=== PATIENT | male | born 1945 | race Caucasian/White ===

== ENCOUNTER → 2024-01-24 06:24 | Day surgery (SDC) | payer OTHER, SELFPAY | LOC: GI 06:24 | PROVIDERS: ATTENDING PHYSICIAN Internal Medicine Gastroenterology; FAMILY PHYSICIAN Family Medicine | DX: K21.01 Gastro-esophageal reflux disease with esophagitis, with bleeding (principal); K44.9 Diaphragmatic hernia without obstruction or gangrene; K31.89 Other diseases of stomach and duodenum; R13.10 Dysphagia, unspecified | CPT/HCPCS: 43239; 88305; 88342 ==

== ENCOUNTER 2024-03-05 12:14 | Emergency (ER) | payer OTHER, SELFPAY ==
[2024-03-05 12:17] VITALS: BP 172/77
[2024-03-05 12:32] LABS: % Basophils 0.8 % (0-2); % Eosinophils 1.6 % (0-6); % Immature Granulocytes 0.7 % (0-0.5); % Lymphocytes 18.7 % (20.5-51.1); % Monocytes 7.5 % (1.7-9.3); % Neutrophils 70.7 % (42.2-75.2); Absolute Basophils 0.1 10^3/uL (0-0.2); Absolute Eosinophils 0.2 10^3/uL (0-0.7); Absolute Immature Granulocytes 0.1 10^3/uL (0-0.05); Absolute Lymphocytes 2.1 10^3/uL (1.2-3.4); Absolute Monocytes 0.8 10^3/uL (0.1-0.6); Absolute Neutrophils 7.9 10^3/uL (1.4-6.5); Hematocrit 42.4 % (39.0-52.0); Hemoglobin 14.5 g/dL (13.0-18.0); Mean Corp Hgb Conc. 34.2 g/dL (33.0-37.0); Mean Corpuscular Hgb 32.5 pg (27.0-31.0); Mean Corpuscular Volume 95.1 fL (80.0-94.0); Nucleated Red Blood Cells % 0 % (-); Platelet Count 242 10^3/uL (130-400); Red Blood Cell Count 4.46 10^6/uL (4.70-6.10); Red Cell Dist. Width 13.1 % (11.5-14.5); White Blood Cell Count 11.2 10^3/uL (4.8-10.8)
[2024-03-05 12:57] LABS: ALT (SGPT) 14 U/L (0-50); AST (SGOT) 22 U/L (17-59); Albumin 4.3 g/dl (3.5-5.0); Alkaline Phosphatase 85 U/L (38-126); Blood Urea Nitrogen 16 mg/dl (9-20); Calcium 9.7 mg/dl (8.4-10.2); Carbon Dioxide 22 mmol/L (22-30); Chloride 107 mmol/L (98-107); Glucose 111 mg/dl (70-99); Potassium 4.5 mmol/L (3.5-5.1); Sodium 139 mmol/L (135-145); Total Bilirubin 0.7 mg/dl (0.2-1.3); eGFR > 60.00
--- NOTE | 2024-03-05 16:46 | ED.GENMED ---
History of Present Illness
General
Chief Complaint: Abnormal Lab Value
Source: patient and spouse
Exam Limitations: none
Time Seen by Provider: 03/05/24 16:27
Travel History
Have you had any contact with someone who has COVID-19?: No
Do you have any symptoms of coronavirus? Fever > 100 degrees, chills, cough, shortness of breath, sore throat, loss of taste or smell, muscle aches, or headache?: No
History of Present Illness
History of Present Illness:
Patient is a 78-year-old male with PMH of htn who presents to the ER sent by MRI. Patient reports he had an MRI/MRA today because of frequency of ocular migraines recommended by his neurologist. He was called today stating that he had a stroke
and he needed to come to the ER. 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
He reports around 3 weeks ago to 1 month he was sitting watching TV and his hand started to shake and when he stood up he felt that his balance was off. This resolved on its own but he did have a similar episode the following day. He remembers
trying to crab picker the remote control at that time with his right hand and he could not do so because his hand was shaking. Since then however he has not had any symptoms.
pt smokes 1 cigarette a day.
Past History
Past History
ED Past Medical History: Other (Previous allergies, previous kidney stone, BPH, previous renal insufficiency)
ED Past Surgical History: Urological
Social History
Tobacco: Former smoker
Alcohol: None
Family History
Family History: Diabetes, Hypertension and Other (Dementia)
Review of Systems
Review of Systems
Allergies reviewed?: Yes
Other source history: family
All Other Systems: ROS reviewed and negative except as documented in HPI and ROS
Constitutional: Reports no symptoms; Denies fever, fatigue or chills
Respiratory: Reports no symptoms
Cardiac: Reports no symptoms
ABD/GI: Reports no symptoms
Musculoskeletal: Reports no symptoms
Skin: Reports no symptoms
Neurological: Reports numbness (Patient had an episode of bilateral hand shaking and felt that his balance was off around 3-4 weeks ago x 2 episodes)
Psychiatric: Reports no symptoms
Phy Exam
General Physical Exam
General Presentation: no apparent distress
General age: appears stated age
General Skin: warm and dry
General Habitus: normal
General Mental: alert
General Hydration: appears well hydrated
Neurological Exam
Neurological Exam: alert, oriented x3, no motor deficits and no sensory deficits
NIH Stroke Score
Level of Consciousness: 0 - Alert
LOC questions: 0-Answers both correctly
LOC Commands: 0-Performs both correctly
Best Gaze: 0-Normal
Visual Borrego: 0=Normal, no visual loss
Facial palsy: 0=Normal, symmetrical
Motor - Right Arm: 0=No drift 10 seconds
Motor - Left Arm: 0=No drift 10 seconds
Motor - Right Le-No drift 5 seconds
Motor - Left Le-No drift 5 seconds
Limb Ataxia: 0-Absent
Sensation: 0-Normal
Best Language: 0-No aphasia
Dysarthria: 0-Normal
Extinction and Inattention: 0-No abnormality
Total Score:: 0
Townsend Coma Scale
Eye Opening: Spontaneous
Verbal Response: Oriented
Motor Response: Obeys Commands
GCS Total Score: 15
Cerebellar
Cerebellar Function: normal finger to nose
Musculoskeletal Exam
Musculoskeletal Exam: full ROM
Skin Exam
Skin Exam: normal color and warm/dry
Psychiatric Exam
Psychiatric Exam: normal mood/affect
Course
Orders/Labs/Results
Orders:
Orders
03/05/24 12:24
CMP [Comprehensive Metabolic Panel] Urgent
Cardiovascular Evaluation Urgent
Comment: add on
Complete Blood Count/With Diff Urgent
03/05/24 17:26
Add On- LAB Urgent
Tests Added?: total lipid profile
03/05/24 17:32
Aspirin 325 mg PO NOW STA
03/05/24 20:08
Electrocardiogram (*1) Stat
Reason for Study: Other
Other Reason for Exam: chest pain
EKG- Treatment ONCE
Abnormal Lab Results
03/05/24
12:24
WBC 11.2 H 10^3/uL
(4.8-10.8)
RBC 4.46 L 10^6/uL
(4.70-6.10)
MCV 95.1 H fL
(80.0-94.0)
MCH 32.5 H pg
(27.0-31.0)
Abs Immat Gran (auto) 0.1 H 10^3/uL
(0-0.05)
Absolute Neuts (auto) 7.9 H 10^3/uL
(1.4-6.5)
Absolute Monos (auto) 0.8 H 10^3/uL
(0.1-0.6)
Immature Gran % 0.7 H %
(0-0.5)
Lymphocytes % 18.7 L %
(20.5-51.1)
Glucose 111 H mg/dl
(70-99)
03/05/24 12:24
03/05/24 12:24
Vital Signs
Initial and Last Documented VS:
Initial Vital Signs
Temp Pulse Resp BP Pulse Ox
97.4 F 60 18 172/77 96
03/05/24 12:17 03/05/24 12:17 03/05/24 12:17 03/05/24 12:17 03/05/24 12:17
Last Documented Vital Signs
Temp Pulse Resp BP Pulse Ox
97.4 F 57 13 171/84 95
03/05/24 12:17 03/05/24 20:30 03/05/24 20:30 03/05/24 20:00 03/05/24 20:30
Boat Engines Installer consulted with Physician
Boat Engines Installer consulted with physician?: Yes
Name of Physician Consulted: Bryon
MDM/Problems Addressed
Differential Diagnosis Includes:
not limited to : CVA
MDM/Problems Addressed:
Patient is a 78-year-old male that was sent to the ER after MRI. Patient has a neurologist Dr. Cuadra and MACKENZIE Randall. He was having increase in frequency of ocular migraines and therefore was sent for MRI/MRA. Patient had that done today
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 Both carotid arteries were visualized and normal. Anterior and
posterior circulation read no high-grade occlusions. Patient is awake alert and intact neurologically with an NIH of 0. He does mention around 3-4 weeks ago he was sitting watching TV and his hands are and he had a little balance issue when he
stood up this happened twice the following day as well but since then he has had no symptoms.
Case was reviewed by neurology Dr. Stack who recommends ASA 325 mg daily. I added cholesterol screening to labs as requested . Patient's LDL is 89 as per neurology will start atorvastatin 40 mg once daily
Pt has appt with his neurologist next week d/c with ED physician.
Chronic conditions affecting care:
htn
*Radiology
Radiology exam reviewed: radiology read reviewed (MRI/MRA reviewed )
*Pulse Oximetry
Patient hypoxic: no
*Critical Care Note
Total Time (30-74mins, 75-104mins- exclusive of procedures): Not Applicable
Patient Management
Discussion with other providers: Cook Short Order (neuro DR Stack )
ED Attending Note
-
Portions of this chart may have been created with voice recognition software.� Occasional wrong word or��sound alike� substitutions may have occurred due to the inherent limitations of voice recognition software.
Discharge Plan
Departure
Patient Disposition: Home (Routine Discharge)
Date of Disposition: 03/05/24
Time of Disposition: 20:02
Patient with high blood pressure during this ER visit?: Yes
Covid-19: Not Applicable
Discharge Problem:
CVA (cerebral vascular accident)
Instructions: Stroke, BLOOD PRESSURE
Prescriptions:
New
atorvastatin 40 mg tablet
40 mg PO DAILY Qty: 30 0RF
No Action
carvedilol 12.5 mg Tablet
12.5 mg PO BID
fexofenadine [Divina] 60 mg Tablet
60 mg PO DAILYPRN PRN (Reason: allergies)
amlodipine 5 mg Tablet
5 mg PO BID
acetaminophen [Tylenol Arthritis] 650 mg Tablet Extended Release
650 mg PO DAILYPRN PRN (Reason: mild pain)
tamsulosin 0.4 mg Capsule
0.4 mg PO QPM
lactase [Lactaid] 3,000 unit Tablet
3,000 unit PO DAILYPRN PRN (Reason: lactose intolerance)
finasteride 5 mg Tablet
5 mg PO DAILY
cholecalciferol (vitamin D3) 25 mcg (1,000 unit) Tablet
25 mcg PO DAILY
PreserVision AREDS-2 250-90-40-1 mg Capsule
1 cap PO BID
Referrals:
Viviane Powell DO [Family Provider] -
Activity Restrictions/Additional Instructions:
Follow-up with your neurologist as scheduled next week. In addition a prescription for atorvastatin 40 mg to be taken daily was sent to your pharmacy. Also take aspirin 325 mg daily.
Continue blood pressure medication. Return if any worsening of symptoms
Interventions
Interventions:
*Risk Screen - Suicide Last Done: 03/05/24 12:17
*General Assessment Last Done: 03/05/24 12:17
*Neglect/Abuse Screening Last Done: 03/05/24 12:17
ED- Fall Risk Assessment Last Done: 03/05/24 17:21
*ED COVID-19 Vaccine History Last Done: 03/05/24 12:17
*Nursing Disposition Last Done: 03/05/24 20:47
Discharge Date and Time
Discharge Date/Time: 03/05/24 20:49
Print Language: AMHARIC
[2024-03-05 17:00] VITALS: BP 181/84
[2024-03-05] MEDS: ASPIRIN 325 MG PO (17:46)
[2024-03-05 18:00] VITALS: BP 175/78
[2024-03-05 18:12] LABS: HDL Cholesterol 52 mg/dl; LDL Cholesterol, Calculated 89 mg/dl; Total Cholesterol 165 mg/dl (50-199); Triglyceride 120 mg/dl (10-149); Very Low Density Lipoprotein 24 mg/dl (0-30)
[2024-03-05 19:24] VITALS: BP 177/76
[2024-03-05 20:00] VITALS: BP 171/84
== END 2024-03-05 20:49 | disposition home or self-care (01) ==
LOC: EMR 12:14
PROVIDERS: Emergency Medicine; EMERGENCY PHYSICIAN Emergency Medicine; FAMILY PHYSICIAN Family Medicine
DX: I69.398 Other sequelae of cerebral infarction (principal); R20.0 Anesthesia of skin; G43.909 Migraine, unspecified, not intractable, without status migrainosus; I65.1 Occlusion and stenosis of basilar artery; I10 Essential (primary) hypertension; N40.0 Benign prostatic hyperplasia without lower urinary tract symptoms; F17.210 Nicotine dependence, cigarettes, uncomplicated; Z87.442 Personal history of urinary calculi; Z88.8 Allergy status to other drugs, medicaments and biological substances; Z91.018 Allergy to other foods; Z91.048 Other nonmedicinal substance allergy status
CPT/HCPCS: 99283; 70544; 70551; 80053; 80061; 85025; 93005

== ENCOUNTER → 2024-06-28 15:44 | Outpatient (REF) | payer OTHER, SELFPAY | LOC: RCS 15:44 | PROVIDERS: ATTENDING PHYSICIAN Internal Medicine Cardiovascular Disease; FAMILY PHYSICIAN Family Medicine | DX: I63.89 Other cerebral infarction (principal) | CPT/HCPCS: 93306 ==

== ENCOUNTER 2024-07-27 15:33 | Observation (INO) | payer OTHER, SELFPAY ==
[2024-07-27 12:28] VITALS: BP 176/74
--- NOTE | 2024-07-27 12:28 | ED.CVA ---
ED Provider Triage
<Kashmir Ambrose PA-C - Last Filed: 07/27/24 12:34>
-
Patient seen by provider in Triage?: Seen in Triage
Attestation: A medical screening examination has been initiated by a qualified medical provider. Based on the assessment performed at this time, it has been determined that an emergent medical condition may exist and the patient has been informed
that further medical evaluation and possible additional diagnostic testing may be needed.
HPI: 79-year-old male with past medical history of CVA diagnosed in February of this year presenting to the emergency department for evaluation after approximately 30 minutes prior to arrival his noticed him walking slowly on the stairs, had him sit
down on the couch and noticed a right-sided facial droop and mild slurred speech. At time of arrival to the emergency department all of the symptoms have fully resolved and patient states that he feels back to his usual baseline. No focal
neurologic deficits noted on my exam but given patient's history of stat head CT was ordered.
GENERAL: Alert , in no apparent distress
EYE: No visual abnormalities.
NECK: Trachea midline
ENT: No visible abnormalities.
LUNGS: No acute respiratory distress
NEUROLOGICAL: Alert and oriented
SKIN: Skin intact. No visible changes.
MUSCULOSKELETAL: Moving extremities normally
PSYCH: Normal and appropriate interaction.
This is a medical evaluation conducted in person to initiate diagnostic evaluation and provide initial therapeutics. Please see further documentation by the treating clinician.
History of Present Illness
<Kashmir Ambrose PA-C - Last Filed: 07/27/24 12:34>
General
Chief Complaint: CVA/TIA Symptoms
Time Seen by Provider: 07/27/24 14:11
<Diego Javed DO - Last Filed: 07/28/24 06:09>
General
Source: patient and spouse
Exam Limitations: none
Nursing documentation reviewed up to this point in time: agreed with
Onset of Stroke Symptoms
Onset of symptoms known: Yes
Date of onset of symptoms: 07/27/24
Time of onset of symptoms: 11:30
Time pt last seen normal is known: Yes
Date last time pt seen normal: 07/27/24
History of Present Illness
History of Present Illness:
Agree with triage evaluation from physician tutoring assistant
Past History
<Kashmir Ambrose PA-C - Last Filed: 07/27/24 12:34>
Past History
ED Past Medical History: Other (Previous allergies, previous kidney stone, BPH, previous renal insufficiency)
ED Past Surgical History: Urological
Social History
Tobacco: Former smoker
Alcohol: None
Family History
Family History: Diabetes, Hypertension and Other (Dementia)
Review of Systems
<Diego Javed DO - Last Filed: 07/28/24 06:09>
Review of Systems
Other source history: family
All Other Systems: Not applicable
Phy Exam
<Diego Javed DO - Last Filed: 07/28/24 06:09>
Physical Exam
Physical Exam:
see h/p by APA
Course
<Kashmir Ambrose PA-C - Last Filed: 07/27/24 12:34>
Orders/Labs/Results
Orders:
Orders
07/27/24 12:31
CT Head W/o Iv Contrast Urgent
Comment:
Reason For Exam: possible TIA, slurred speech/facial droop
07/27/24 14:10
Complete Blood Count/With Diff Urgent
Comprehensive Metabolic Panel Urgent
PT/INR [Prothrombin Time] Urgent
07/27/24 14:11
ECG [Electrocardiogram (*1)] Urgent
Reason for Study: TIA/Stroke
07/27/24 14:12
EKG- Treatment ONCE
07/27/24 14:13
Troponin I Urgent
07/27/24 15:11
Admit/Transfer Patient As Directed
Co-Sign Provider:
Level of Care: Observation services
Assign to:: Telemetry
Physician / Group: htay
Diagnosis: TIAr/o CVA
Reason for Telemetry: CVA/TIA
Date to Stop Telemetry: 07/30/24
Time to Stop Telemetry: 11:00
07/27/24 15:13
Code Status As Directed
Resuscitation Status: Full Code
07/27/24 19:39
Acetaminophen [Tylenol/Feverall] 650 mg RECTAL Q4HPRN PRN
Acetaminophen [Tylenol] 650 mg PO Q4HPRN PRN
Aspirin 325 mg PO NOW STA
HydrALAZINE [Apresoline] 5 mg IV Q4HPRN PRN
Lactase Enzyme [Lactaid] 1 capsule PO DAILYPRN PRN
Tamsulosin [Flomax] 0.4 mg PO QPM
07/27/24 19:39
Case Management Consult ONCE
Case Management Consult: Discharge Planning
Comment: stroke/tia
DIETARY CONSULT Routine
Reason for Consult: stroke/TIA
Broadband Installer Urgent
MR Brain Without Contrast Routine
Comment:
Reason For Exam: stroke/TIA
Recent pill cam endoscopy?: No
Activity As Directed
Activity Level: With Assistance
NIH Stroke Scale As Directed
Directions: Per protocol
Comment: every shift and with any change in condition or mental status
Neurological Checks As Directed
Frequency: q4h
Additional Instructions:: q4h x 24h upon admission to the floor, then qshift & with any change in condition
and mental status
Patient Education As Directed
Type: Stroke education packet
Comment: provide to patient and family
Pneumatic Compression Sleeves As Directed
Type: Knee high
Swallow Screening CVA/TIA ONLY As Directed
Comment: NPO until swallowing screening completed
If patient FAILS swallow screening:: NPO, Speech Therapy consult, Aspiration Precautions
If patient PASSES swallow screening, diet:: Cholesterol Lowering
Above diet order entered?: Yes- passed screening
Vital Signs As Directed
Frequency: Per unit guidelines
Ot Eval And Treat Routine
Pt Eval And Treat Routine
Activity Level: As Tolerated
Speech Therapy Eval & Treat Routine
DX Deep Vein Thrombosis Video Routine
07/27/24 20:00
Amlodipine [Norvasc] 5 mg PO BID
Carvedilol [Coreg] 12.5 mg PO BID
07/27/24 20:32
Comprehensive Metabolic Panel Routine
Glycohemoglobin (HgbA1c) Routine
07/28/24 06:00
Basic Metabolic Panel IN AM
Cardiovascular Evaluation IN AM
Complete Blood Count/No Diff IN AM
07/28/24 08:00
Aspirin Chewable [Low Strength Aspirin] 81 mg PO DAILY
Atorvastatin [Lipitor] 40 mg PO DAILY
Finasteride [Proscar] 5 mg PO DAILY
07/30/24 11:00
DC Protocol for Telemetry ONCE
Abnormal Lab Results
07/27/24
14:10
WBC 11.6 H 10^3/uL
(4.8-10.8)
RBC 4.39 L 10^6/uL
(4.70-6.10)
MCH 31.7 H pg
(27.0-31.0)
Abs Immat Gran (auto) 0.1 H 10^3/uL
(0-0.05)
Absolute Neuts (auto) 8.3 H 10^3/uL
(1.4-6.5)
Absolute Monos (auto) 0.9 H 10^3/uL
(0.1-0.6)
Immature Gran % 0.6 H %
(0-0.5)
Lymphocytes % 17.4 L %
(20.5-51.1)
Glucose 114 H mg/dl
(70-99)
07/27/24 14:10
07/27/24 14:10
Vital Signs
Initial and Last Documented VS:
Initial Vital Signs
Temp Pulse Resp BP Pulse Ox
98.5 F 58 16 176/74 98
07/27/24 12:28 07/27/24 12:28 07/27/24 12:28 07/27/24 12:28 07/27/24 12:28
Last Documented Vital Signs
Temp Pulse Resp BP Pulse Ox
98.3 F 58 17 143/61 93
07/28/24 03:28 07/28/24 03:28 07/28/24 03:28 07/28/24 03:28 07/28/24 03:28
<Diego Javed, DO - Last Filed: 07/28/24 06:09>
Orders/Labs/Results
Orders:
Orders
07/27/24 12:31
CT Head W/o Iv Contrast Urgent
Comment:
Reason For Exam: possible TIA, slurred speech/facial droop
07/27/24 14:10
Complete Blood Count/With Diff Urgent
Comprehensive Metabolic Panel Urgent
PT/INR [Prothrombin Time] Urgent
07/27/24 14:11
ECG [Electrocardiogram (*1)] Urgent
Reason for Study: TIA/Stroke
07/27/24 14:12
EKG- Treatment ONCE
07/27/24 14:13
Troponin I Urgent
07/27/24 15:11
Admit/Transfer Patient As Directed
Co-Sign Provider:
Level of Care: Observation services
Assign to:: Telemetry
Physician / Group: htay
Diagnosis: TIAr/o CVA
Reason for Telemetry: CVA/TIA
Date to Stop Telemetry: 07/30/24
Time to Stop Telemetry: 11:00
07/27/24 15:13
Code Status As Directed
Resuscitation Status: Full Code
07/27/24 19:39
Acetaminophen [Tylenol/Feverall] 650 mg RECTAL Q4HPRN PRN
Acetaminophen [Tylenol] 650 mg PO Q4HPRN PRN
Aspirin 325 mg PO NOW STA
HydrALAZINE [Apresoline] 5 mg IV Q4HPRN PRN
Lactase Enzyme [Lactaid] 1 capsule PO DAILYPRN PRN
Tamsulosin [Flomax] 0.4 mg PO QPM
07/27/24 19:39
Case Management Consult ONCE
Case Management Consult: Discharge Planning
Comment: stroke/tia
DIETARY CONSULT Routine
Reason for Consult: stroke/TIA
Broadband Installer Urgent
MR Brain Without Contrast Routine
Comment:
Reason For Exam: stroke/TIA
Recent pill cam endoscopy?: No
Activity As Directed
Activity Level: With Assistance
NIH Stroke Scale As Directed
Directions: Per protocol
Comment: every shift and with any change in condition or mental status
Neurological Checks As Directed
Frequency: q4h
Additional Instructions:: q4h x 24h upon admission to the floor, then qshift & with any change in condition
and mental status
Patient Education As Directed
Type: Stroke education packet
Comment: provide to patient and family
Pneumatic Compression Sleeves As Directed
Type: Knee high
Swallow Screening CVA/TIA ONLY As Directed
Comment: NPO until swallowing screening completed
If patient FAILS swallow screening:: NPO, Speech Therapy consult, Aspiration Precautions
If patient PASSES swallow screening, diet:: Cholesterol Lowering
Above diet order entered?: Yes- passed screening
Vital Signs As Directed
Frequency: Per unit guidelines
Ot Eval And Treat Routine
Pt Eval And Treat Routine
Activity Level: As Tolerated
Speech Therapy Eval & Treat Routine
DX Deep Vein Thrombosis Video Routine
07/27/24 20:00
Amlodipine [Norvasc] 5 mg PO BID
Carvedilol [Coreg] 12.5 mg PO BID
07/27/24 20:32
Comprehensive Metabolic Panel Routine
Glycohemoglobin (HgbA1c) Routine
07/28/24 06:00
Basic Metabolic Panel IN AM
Cardiovascular Evaluation IN AM
Complete Blood Count/No Diff IN AM
07/28/24 08:00
Aspirin Chewable [Low Strength Aspirin] 81 mg PO DAILY
Atorvastatin [Lipitor] 40 mg PO DAILY
Finasteride [Proscar] 5 mg PO DAILY
07/30/24 11:00
DC Protocol for Telemetry ONCE
Abnormal Lab Results
07/27/24
14:10
WBC 11.6 H 10^3/uL
(4.8-10.8)
RBC 4.39 L 10^6/uL
(4.70-6.10)
MCH 31.7 H pg
(27.0-31.0)
Abs Immat Gran (auto) 0.1 H 10^3/uL
(0-0.05)
Absolute Neuts (auto) 8.3 H 10^3/uL
(1.4-6.5)
Absolute Monos (auto) 0.9 H 10^3/uL
(0.1-0.6)
Immature Gran % 0.6 H %
(0-0.5)
Lymphocytes % 17.4 L %
(20.5-51.1)
Glucose 114 H mg/dl
(70-99)
07/27/24 14:10
07/27/24 14:10
Vital Signs
Initial and Last Documented VS:
Initial Vital Signs
Temp Pulse Resp BP Pulse Ox
98.5 F 58 16 176/74 98
07/27/24 12:28 07/27/24 12:28 07/27/24 12:28 07/27/24 12:28 07/27/24 12:28
Last Documented Vital Signs
Temp Pulse Resp BP Pulse Ox
98.3 F 58 17 143/61 93
07/28/24 03:28 07/28/24 03:28 07/28/24 03:28 07/28/24 03:28 07/28/24 03:28
<Diego Javed DO - Last Filed: 07/28/24 06:09>
MDM/Problems Addressed
Differential Diagnosis Includes:
tia cva sz
<Diego Javed DO - Last Filed: 07/28/24 06:09>
*Radiology
Radiology exam reviewed: radiology read reviewed
*Pulse Oximetry
Patient hypoxic: no
*EKG
Interpreted by ED Provider?: Yes
Interpretation: normal
Comparison EKG: no comparison EKG present
Heart Rate: 78
Rate: normal
Rhythm: sinus
[place]: normal axis
Ischemia: no ischemia
*Hand Riveter Interpretation
Rate: normal
Interpretation: normal
Heart Rate: 78
Rhythm: sinus
*Critical Care Note
Total Time (30-74mins, 75-104mins- exclusive of procedures): Not Applicable
Data Reviewed
Source: patient and spouse
ED Attending Note
<Kashmir Ambrose PA-C - Last Filed: 07/27/24 12:34>
-
Portions of this chart may have been created with voice recognition software.� Occasional wrong word or��sound alike� substitutions may have occurred due to the inherent limitations of voice recognition software.
<Diego Javed DO - Last Filed: 07/28/24 06:09>
ED Attending Note
Patient seen and examined by attending physician: Yes
I performed the substantive portion of visit, reviewed & personally made and approve the management plan that is documented in note by myself or WERO.: Yes
ED Attending Note:
Seen with PA examined independently agree with assessment and plan 1520-minute episode of slurred speech and right facial weakness had a stroke on a prior MRI had a Holter monitor with no arrhythmia sees an outpatient neurologist being worked up for
neuropathy
Discharge Plan
Departure
Patient Disposition: Admit
Date of Disposition: 07/27/24
Time of Disposition: 15:08
Admit to: Telemetry
Presentation/result/management discussed w/ accepting MD/DO: Hospitalist
Patient with high blood pressure during this ER visit?: No
Condition: Fair
Covid-19: Not Applicable
Discharge Problem:
Brain TIA
Interventions
Interventions:
*Risk Screen - Suicide Last Done: 07/27/24 12:28
*General Assessment Last Done: 07/27/24 12:28
*Neglect/Abuse Screening Last Done: 07/27/24 12:28
ED- Fall Risk Assessment Last Done: 07/27/24 14:08
*ED COVID-19 Vaccine History Last Done: 07/27/24 12:28
*Nursing Disposition Last Done: 07/27/24 19:15
ED- Pulmonary Assessment Last Done: 07/27/24 14:08
ED- Neurological Assessment Last Done: 07/27/24 14:08
ED- Cardiac Assessment Last Done: 07/27/24 14:08
Discharge Date and Time
Discharge Date/Time: 07/27/24 19:22
[2024-07-27 14:18] VITALS: BP 184/78
[2024-07-27 14:24] LABS: % Basophils 0.7 % (0-2); % Eosinophils 1.4 % (0-6); % Immature Granulocytes 0.6 % (0-0.5); % Lymphocytes 17.4 % (20.5-51.1); % Neutrophils 71.9 % (42.2-75.2); Absolute Basophils 0.1 10^3/uL (0-0.2); Absolute Eosinophils 0.2 10^3/uL (0-0.7); Absolute Immature Granulocytes 0.1 10^3/uL (0-0.05); Absolute Monocytes 0.9 10^3/uL (0.1-0.6); Absolute Neutrophils 8.3 10^3/uL (1.4-6.5); Hematocrit 40.2 % (39.0-52.0); Hemoglobin 13.9 g/dL (13.0-18.0); Mean Corp Hgb Conc. 34.6 g/dL (33.0-37.0); Mean Corpuscular Hgb 31.7 pg (27.0-31.0); Mean Corpuscular Volume 91.6 fL (80.0-94.0); Mean Platelet Volume 10.3 fL (7.4-10.4); Nucleated Red Blood Cells % 0 % (-); Platelet Count 248 10^3/uL (130-400); Red Blood Cell Count 4.39 10^6/uL (4.70-6.10); Red Cell Dist. Width 13.1 % (11.5-14.5); White Blood Cell Count 11.6 10^3/uL (4.8-10.8)
[2024-07-27 14:34] LABS: INR 1.07; PT 13.8 Sec (11.4-14.6)
[2024-07-27 14:43] LABS: ALT (SGPT) 19 U/L (0-50); AST (SGOT) 23 U/L (17-59); Albumin 4.5 g/dl (3.5-5.0); Alkaline Phosphatase 82 U/L (38-126); Blood Urea Nitrogen 16 mg/dl (9-20); Calcium 9.6 mg/dl (8.4-10.2); Carbon Dioxide 25 mmol/L (22-30); Chloride 104 mmol/L (98-107); Glucose 114 mg/dl (70-99); Potassium 4.6 mmol/L (3.5-5.1); Sodium 139 mmol/L (135-145); Total Bilirubin 0.8 mg/dl (0.2-1.3); eGFR > 60.00
[2024-07-27 14:55] LABS: Troponin I < 0.012 ng/ml
--- NOTE | 2024-07-27 15:06 | HPS.HSE ---
Family Physician
-
Family Physician: Viviane Powell
Chief Complaint
-
abn speech and Rt facial droop
History of Present Illness
HPI
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
- noticed a right-sided facial droop and mild slurred speech.
At time of arrival to the emergency department all of the symptoms have fully resolved and patient states that he feels back to his usual baseline. No focal neurologic deficits noted on my exam
Medical History
Past Medical History
Past Medical History: Reports HTN, Hypercholesterolemia and Other (BPH )
Past Surgical History: Reports Urological ( Transurethral ablation of prostate on 03/27/19.)
Social History
Tobacco: Non-smoker
Alcohol: None
Drug: None
Family History
Family History: Not pertinent
Allergies / Home Medications
Allergies reflects when Allergies were last updated in [employer].
Home Medications with original date entered in [employer]
Allergy/Medication List:
Allergies
Allergy/AdvReac Type Severity Reaction Status Date / Time
michela Allergy Unknown Rash,Rash Verified 07/27/24 12:28
- back of
lower legs
olmesartan Allergy Unknown Unknown,contraindicated Verified 07/27/24 12:28
with
kidney
disease
hay fever Allergy Unknown - Uncoded 07/27/24 12:28
Home Medications
acetaminophen 650 mg tablet,extended release 650 mg PO DAILYPRN PRN mild pain 03/05/24
amlodipine 5 mg tablet 5 mg PO BID 03/05/24
atorvastatin 40 mg tablet 40 mg PO DAILY #30 tabs 03/05/24
carvedilol 12.5 mg tablet 12.5 mg PO BID 03/05/24
cholecalciferol (vitamin D3) 25 mcg (1,000 unit) tablet 25 mcg PO DAILY 03/05/24
fexofenadine 60 mg tablet 60 mg PO DAILYPRN PRN allergies 03/05/24
finasteride 5 mg tablet 5 mg PO DAILY 03/05/24
lactase 3,000 unit tablet (Lactaid) 3,000 unit PO DAILYPRN PRN lactose intolerance 03/05/24
tamsulosin 0.4 mg capsule 0.4 mg PO QPM 03/05/24
vit C 250 mg-vit E 90 mg-zinc 40 mg-copper 1 [id number] capsule (PreserVision AREDS-2) 1 cap PO BID 03/05/24
Review of Systems
-
Constitutional: Reports No Symptoms
EENT: Reports No Symptoms
Respiratory: Reports No Symptoms
Cardiac: Reports No Symptoms
Abdomen/GI: Reports No Symptoms
: Reports No Symptoms
Musculoskeletal: Reports No Symptoms
Skin: Reports No Symptoms
Neurological: Reports See HPI
Endocrine: Reports No Symptoms
Hematologic/Lymphatic: Reports No Symptoms
Psych: Reports No Symptoms
Physical Exam
Vital Signs
Vital Signs
Temp Pulse Resp BP Pulse Ox
98.5 F 58 16 184/78 95
07/27/24 12:28 07/27/24 12:28 07/27/24 12:28 07/27/24 14:18 07/27/24 14:30
Physical Exam
General: Well Developed, Well Nourished and No Apparent Distress
HEENT: NormoCephalic, Moist mucous membranes and Atraumatic
Respiratory: Clear
Cardiac: S1/S2 and Regular Rhythm; No Murmur or Rub
GI: Soft, Non Tender, Non Distended and Normal Bowel Sounds; No Organomegaly
Rectal: Deferred by Provider
Musculoskeletal: No Clubbing, No Cyanosis and No Edema
Skin: No Rash
Neuro: Nonfocal/grossly intact
Laboratory Results
-
07/27/24 14:10
07/27/24 14:10
Laboratory Results
PT 13.8 Sec (11.4-14.6) 07/27/24 14:10
INR 1.07 07/27/24 14:10
Total Bilirubin 0.8 mg/dl (0.2-1.3) 07/27/24 14:10
AST 23 U/L (17-59) 07/27/24 14:10
ALT 19 U/L (0-50) 07/27/24 14:10
Alkaline Phosphatase 82 U/L (38-126) 07/27/24 14:10
Troponin I < 0.012 ng/ml 07/27/24 14:13
Data Reviewed
-
CT Scan: Report Reviewed by me
Lab Data: Labs Reviewed by me
Old Records: Reviewed
Impression/Plan
-
Reviewed VS: BP 175/75 - 185/78 HR 58 on Carvedilol
Data
WCC 11.6
07/26/24 HCT
No acute intracranial abnormality.
Small chronic infarct of the right occipital lobe.
03/05/24 MA [place] [facility] [place] [facility]; MR Brain Without Contrast
- Nonhemorrhagic acute/subacute right occipital lobe infarct.
- Focal approximate 50% stenosis of the basilar artery at the pontine level.
The remainder of the basilar artery is intact.
No other focal hemodynamically significant stenosis, aneurysm or occlusion.
- 1.7 cm right frontal calcified meningioma. Consider outpatient follow-up MRI brain exam with contrast.
EKG report
SINUS BRADYCARDIA
OTHERWISE NORMAL ECG
WHEN COMPARED WITH ECG OF 05-MAR-2024 20:17,
NO SIGNIFICANT CHANGE WAS FOUND
06/28/24 TTE
LVEF 61%
Normal diastolic function.
Normal right ventricular size and function.
Trace tricuspid regurgitation. Estimated pulmonary artery pressure of 32 mmHg
Last hospitalist admission:
DATE OF ADMISSION: 05/17/2018 - DATE OF DISCHARGE: 05/20/2018
PRIMARY DIAGNOSIS: Acute kidney injury secondary to obstructive uropathy.
ASSESSMENT & PLAN
Pending Rx reconciliation
Spontaneous resolution of transient acute abnormal acute gait dysfunction , right-sided facial droop and mild slurred speech.
NIH Zero upon arrival
HCT POS for asymptomatic small chronic infarct of the right occipital lobe.
Currently on daily baby ASA
Risk : HTN , HLD
- NEG HCT for acute but
- Further evaluation for TIA, r/o CVA small chronic infarct of the right occipital lobe.
- ASA 325 mg now then cont [employer]ES ATTORNEY ASA daily
- cont [employer]ORNEY Atorvastatin 40mg HS
- Recent TTE as above
- A1 C and Lipids
- Brain MRI in AM
- Neuro consult
Benign HTN - suboptimal control
- cont Amlodipine and Carvedilol
- allow permissive SBP 185, DBP 110 for IV Hydralazine
HX Transurethral ablation of prostate on 03/27/19 for BPH
- await Rx reconciliation
DVT Px: SCD
Code: Full
Obs TLM
[2024-07-27 16:00] VITALS: BP 162/82
--- NOTE | 2024-07-27 16:32 | CON.NEURO ---
Consultation
Order
Date of Consultation: 07/27/24
Requesting Provider: Jose Manuel Merritt MD
Reason for Consult: Stroke
CC: 'episodes'
HPI: This is a 79-year-old RH man who presented to [facility] on July 27, 2024 with a spell.
According to the patient he developed recurrent spells of unusual sensation lasting for several minutes that he developed 3-4 months ago. He feels that his bowels are becoming more frequent and may occur up to twice a week.
The patient also reports intermittent double vision, which he states is a new symptom. No reports of lightheadedness, vertigo, abnormal movements, change in vision or palpitations.
ER VS: 176/74-184/78, 58, afebrile
EKG: sinus maria r, QTc Int : 405 ms
PDMP: none
Labs: WBCs�11.6,Glucose�114,
PMH: R HEAD TURBINE OPERATOR stroke, basilar artery stenosis, DLP, BPH
PSH:TURP
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
FH: No family history of neurodegenerative diseases,
All:olmesartan
ROS:Constitutional: Negative. Negative for chills, fever and unexpected weight change.
HENT: Negative for ear pain, hearing loss, tinnitus and trouble swallowing.
Eyes: Negative. Negative for photophobia, pain and visual disturbance.
Respiratory: Negative for cough, choking and shortness of breath.
Cardiovascular: Negative for chest pain, palpitations and leg swelling.
Gastrointestinal: Negative for abdominal pain and vomiting.
Endocrine: Negative. Negative for cold intolerance.
Genitourinary: Negative for dysuria, flank pain and urgency.
Musculoskeletal: Negative for back pain, gait problem, neck pain and neck stiffness.
Skin: Negative for rash.
Allergic/Immunologic: Negative. Negative for immunocompromised state.
Neurological: Negative for dizziness, tremors, seizures, speech difficulty, numbness and headaches.
Psychiatric/Behavioral: Positive for intermittent confusion.
General: Well developed. In no acute distress.
Cardio: Regular rate and rhythm without murmur. Extremities are without cyanosis or edema.
Neuro:
Mental Status: Alert, oriented to person, place, and date. Increased processing time. Follows simple requests. Nonfluent. No hemineglect.
Cranial Nerves: . Pupils are equally round and reactive to light. EOMs full. Visual hinkle full to confrontation. No ptosis. No nystagmus. V1-V3 intact to light touch and pinprick bilaterally, symmetric. Face symmetric. Normal hearing AU.
The palate elevated well. SCMs and traps 5/5. Tongue midline. No dysarthria.
Motor: Normal bulk and tone. No pronator or arm drift. Strength 5/5 throughout. No clonus.
Reflexes: Negative grasp bilaterally.
Sensory: Light touch.
Coordination: No dysmetria or tremor.
Gait: deferred mildly impaired
Assessment and Plan:
I. Recurrent spells. Focal seizures vs symptomatic bradycardia
II. Chronic R HEAD TURBINE OPERATOR infarct
III. Basilar artery stenosis
IV. 1.7 cm right frontal calcified meningioma
V. Encephalopathy, likely vascular
-Tele
-Fall precautions
-Please obtain brain MRI without gadolinium
-Will obtain collateral history from patient's significant other
-Continue aspirin 81 mg once a day
-Routine EEG(can be done as OP)
I personally reviewed all radiology and labs along with past medical records pertinent to current medical problems. Total time spent in patient care is 60 minutes.
Thank you for allowing us to participate in the care of this patient. We will continue to follow. Please do not hesitate to contact us with any questions or concerns.
Subjective/Objective
Subjective Data
Date of Service: July 27, 2024
Objective Data
Vital Signs
Temp Pulse Resp BP Pulse Ox
36.9 C 58 16 162/82 95
07/27/24 12:28 07/27/24 12:28 07/27/24 12:28 07/27/24 16:00 07/27/24 16:00
Lab Results
07/27/24 14:10
07/27/24 14:10
PT 13.8 Sec (11.4-14.6) 07/27/24 14:10
INR 1.07 07/27/24 14:10
Sodium 139 mmol/L (135-145) 07/27/24 14:10
Potassium 4.6 mmol/L (3.5-5.1) 07/27/24 14:10
BUN 16 mg/dl (9-20) 07/27/24 14:10
Glucose 114 mg/dl (70-99) H 07/27/24 14:10
Calcium 9.6 mg/dl (8.4-10.2) 07/27/24 14:10
Patient Allergies
michela Allergy (Unknown, Verified 07/27/24 12:28)
Rash,Rash - back of lower legs
olmesartan Allergy (Unknown, Verified 07/27/24 12:28)
Unknown,contraindicated with kidney disease
hay fever Allergy (Unknown, Uncoded 07/27/24 12:28)
-
Medications
-
Home Medications
�Medication �Instructions �Recorded
amlodipine 5 mg tablet 5 mg PO BID 03/05/24
carvedilol 12.5 mg tablet 12.5 mg PO BID 03/05/24
cholecalciferol (vitamin D3) 25 25 mcg PO DAILY 03/05/24
mcg (1,000 unit) tablet
fexofenadine 60 mg tablet 60 mg PO DAILYPRN PRN allergies 03/05/24
finasteride 5 mg tablet 5 mg PO DAILY 03/05/24
lactase 3,000 unit tablet (Lactaid) 3,000 unit PO DAILYPRN PRN lactose 03/05/24
intolerance
tamsulosin 0.4 mg capsule 0.4 mg PO QPM 03/05/24
vit C 250 mg-vit E 90 mg-zinc 40 1 cap PO BID 03/05/24
mg-copper 1 [id number]
capsule (PreserVision AREDS-2)
acetaminophen 500 mg tablet 500 mg PO Q6HPRN PRN mild pain 07/27/24
(Tylenol Extra Strength)
aspirin 325 mg tablet 325 mg PO NOON 07/27/24
atorvastatin 10 mg tablet 10 mg PO NOON 07/27/24
tetrahydrozoline 0.05 % eye drops 1 drp BOTH EYES Q6HPRN PRN dry eyes 07/27/24
(Visine)
Vital Signs and Labs
-
Vital Signs and Labs:
Vital Signs
Temp Pulse Resp BP Pulse Ox
36.9 C 73 18 160/80 98
07/27/24 12:28 07/27/24 17:34 07/27/24 17:34 07/27/24 17:34 07/27/24 17:34
Lab Results
07/27/24 14:10
07/27/24 14:10
PT 13.8 Sec (11.4-14.6) 07/27/24 14:10
INR 1.07 07/27/24 14:10
Sodium 139 mmol/L (135-145) 07/27/24 14:10
Potassium 4.6 mmol/L (3.5-5.1) 07/27/24 14:10
BUN 16 mg/dl (9-20) 07/27/24 14:10
Glucose 114 mg/dl (70-99) H 07/27/24 14:10
Calcium 9.6 mg/dl (8.4-10.2) 07/27/24 14:10
Home Medications
-
Home Medications
amlodipine 5 mg tablet 5 mg PO BID 03/05/24
carvedilol 12.5 mg tablet 12.5 mg PO BID 03/05/24
cholecalciferol (vitamin D3) 25 mcg (1,000 unit) tablet 25 mcg PO DAILY 03/05/24
fexofenadine 60 mg tablet 60 mg PO DAILYPRN PRN allergies 03/05/24
finasteride 5 mg tablet 5 mg PO DAILY 03/05/24
lactase 3,000 unit tablet (Lactaid) 3,000 unit PO DAILYPRN PRN lactose intolerance 03/05/24
tamsulosin 0.4 mg capsule 0.4 mg PO QPM 03/05/24
vit C 250 mg-vit E 90 mg-zinc 40 mg-copper 1 [id number] capsule (PreserVision AREDS-2) 1 cap PO BID 03/05/24
acetaminophen 500 mg tablet (Tylenol Extra Strength) 500 mg PO Q6HPRN PRN mild pain 07/27/24
aspirin 325 mg tablet 325 mg PO NOON 07/27/24
atorvastatin 10 mg tablet 10 mg PO NOON 07/27/24
tetrahydrozoline 0.05 % eye drops (Visine) 1 drp BOTH EYES Q6HPRN PRN dry eyes 07/27/24
[2024-07-27 17:34] VITALS: BP 160/80
--- NOTE | 2024-07-27 19:40 | PTCARENOTE ---
Patient arrived to 317-2 from ED via stretcher, ambulated from stretcher to bed with standby assist and tolerated well. Patient alert and oriented, no complaints at this time. Significant other at bedside. NIH performed -- score of 0. Patient
currently with no symptoms, all resolved prior to arrival to ED. Initiated on quality assurance monitor final #1 - SR with HR 70s. Patient provided with boxed lunch, passed swallow screen, tolerated well. Call wagoner within reach, verbalizes understanding on use.
Will continue to monitor.
[2024-07-27] MEDS: FLOMAX 0.4 MG PO (20:43)
[2024-07-27] MEDS: NORVASC 5 MG PO (20:43)
[2024-07-27] MEDS: COREG 12.5 MG PO (20:43)
[2024-07-27] MEDS: ASPIRIN 325 MG PO (20:43)
[2024-07-27 20:55] VITALS: BMI 31.1
[2024-07-27 20:58] LABS: ALT (SGPT) 18 U/L (0-50); AST (SGOT) 22 U/L (17-59); Albumin 4.2 g/dl (3.5-5.0); Alkaline Phosphatase 76 U/L (38-126); Blood Urea Nitrogen 15 mg/dl (9-20); Calcium 9.5 mg/dl (8.4-10.2); Carbon Dioxide 22 mmol/L (22-30); Chloride 106 mmol/L (98-107); Estimated Creatinine Clearance 71 ml/min; Glucose 95 mg/dl (70-99); Potassium 4.2 mmol/L (3.5-5.1); Sodium 140 mmol/L (135-145); Total Bilirubin 0.7 mg/dl (0.2-1.3); Total Protein 6.6 g/dl (6.3-8.2); eGFR > 60.00
[2024-07-27 21:44] VITALS: BP 165/73
[2024-07-27 23:50] VITALS: BP 146/66
[2024-07-28] VITALS (8 sets, daily range): BP systolic 128–168; BP diastolic 54–76; PULSE 62; O2SAT 94
[2024-07-28] MEDS: LIPITOR 40 MG PO (08:53)
[2024-07-28] MEDS: PROSCAR 5 MG PO (08:53)
[2024-07-28] MEDS: LOW STRENGTH ASPIRIN 81 MG PO (08:53)
[2024-07-28] MEDS: NORVASC PO (09:07)
[2024-07-28] MEDS: COREG PO (09:07)
[2024-07-28 09:26] LABS: Hematocrit 43.9 % (39.0-52.0); Hemoglobin 14.7 g/dL (13.0-18.0); Mean Corp Hgb Conc. 33.5 g/dL (33.0-37.0); Mean Corpuscular Hgb 32.2 pg (27.0-31.0); Mean Corpuscular Volume 96.1 fL (80.0-94.0); Mean Platelet Volume 11.3 fL (7.4-10.4); Platelet Count 231 10^3/uL (130-400); Red Blood Cell Count 4.57 10^6/uL (4.70-6.10); Red Cell Dist. Width 13.2 % (11.5-14.5); White Blood Cell Count 9.3 10^3/uL (4.8-10.8)
[2024-07-28 10:07] LABS: Blood Urea Nitrogen 18 mg/dl (9-20); Calcium 9.6 mg/dl (8.4-10.2); Carbon Dioxide 25 mmol/L (22-30); Chloride 104 mmol/L (98-107); Estimated Creatinine Clearance 59 ml/min; Glucose 99 mg/dl (70-99); HDL Cholesterol 44 mg/dl; LDL Cholesterol, Calculated 63 mg/dl; Potassium 4.4 mmol/L (3.5-5.1); Sodium 142 mmol/L (135-145); Total Cholesterol 132 mg/dl (50-199); Triglyceride 125 mg/dl (10-149); Very Low Density Lipoprotein 25 mg/dl (0-30); eGFR > 60.00
[2024-07-28 11:31] LABS: Glycohemoglobin (HgbA1c) 5.4 % (4.0-5.6)
--- NOTE | 2024-07-28 11:42 | W.PN.NEURO.1 ---
Today's Communication / Plan
-
.
Subjective/Objective
Subjective Data
Date of Service: July 28, 2024
Neurology progress note.
24-hour events: Blood pressure had improved. Afebrile.
Mr. Becker reports a spell of warm sensation lasting for several minutes without accompanying symptoms while he was at rest around 8 AM today. Today the patient states that he was hospitalized to a hospital in [place] at the age of 9 after he
had passed out. He was told to have a seizure and has been treated with Dilantin for several years.
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
PSH:TURP
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
FH: No family history of neurodegenerative diseases,
All:olmesartan
ROS:Constitutional: Negative. Negative for chills, fever and unexpected weight change.
HENT: Negative for ear pain, hearing loss, tinnitus and trouble swallowing.
Eyes: Negative. Negative for photophobia, pain and visual disturbance.
Respiratory: Negative for cough, choking and shortness of breath.
Cardiovascular: Negative for chest pain, palpitations and leg swelling.
Gastrointestinal: Negative for abdominal pain and vomiting.
Endocrine: Negative. Negative for cold intolerance.
Genitourinary: Negative for dysuria, flank pain and urgency.
Musculoskeletal: Negative for back pain, gait problem, neck pain and neck stiffness.
Skin: Negative for rash.
Allergic/Immunologic: Negative. Negative for immunocompromised state.
Neurological: Negative for dizziness, tremors, seizures, speech difficulty, numbness and headaches.
Psychiatric/Behavioral: Positive for intermittent confusion.
General: Well developed. In no acute distress.
Cardio: Regular rate and rhythm without murmur. Extremities are without cyanosis or edema.
Neuro:
Mental Status: Alert, oriented to person, place, and date. Increased processing time. Follows simple requests. Nonfluent. No hemineglect.
Cranial Nerves: . Pupils are equally round and reactive to light. EOMs full. Visual hinkle full to confrontation. No ptosis. No nystagmus. V1-V3 intact to light touch and pinprick bilaterally, symmetric. Face symmetric. Normal hearing AU.
The palate elevated well. SCMs and traps 5/5. Tongue midline. No dysarthria.
Motor: Normal bulk and tone. No pronator or arm drift. Strength 5/5 throughout. No clonus.
Reflexes: Negative grasp bilaterally.
Sensory: Light touch.
Coordination: No dysmetria or tremor.
Gait: deferred mildly impaired
Assessment and Plan:
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
II. 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
III. Basilar artery stenosis
IV. 1.7 cm right frontal calcified meningioma
V. Encephalopathy, improved
-Tele
-Fall precautions
-Follow up brain MRI w/wo nupur
-Start Keppra 1 g IV load followed by 500 mg twice daily.
-Continue aspirin 81 mg once a day
-Routine EEG(can be done as OP)
-OP Neurology follow up with Winifred Cuadra MD in 1-2 weeks
I personally reviewed all radiology and labs along with past medical records pertinent to current medical problems. Total time spent in patient care is 37 minutes.
Thank you for allowing us to participate in the care of this patient. Please do not hesitate to contact us with any questions or concerns.
Objective Data
Vital Signs
Temp Pulse Resp BP Pulse Ox
36.2 C 61 16 141/75 94
07/28/24 07:00 07/28/24 07:00 07/28/24 07:00 07/28/24 07:00 07/28/24 07:00
Lab Results
07/28/24 08:05
07/28/24 08:05
PT 13.8 Sec (11.4-14.6) 07/27/24 14:10
INR 1.07 07/27/24 14:10
Sodium 142 mmol/L (135-145) 07/28/24 08:05
Potassium 4.4 mmol/L (3.5-5.1) 07/28/24 08:05
BUN 18 mg/dl (9-20) 07/28/24 08:05
Glucose 99 mg/dl (70-99) 07/28/24 08:05
Calcium 9.6 mg/dl (8.4-10.2) 07/28/24 08:05
LDL Cholesterol, Calc 63 mg/dl 07/28/24 08:05
Patient Allergies
michela Allergy (Unknown, Verified 07/27/24 12:28)
Rash,Rash - back of lower legs
olmesartan Allergy (Unknown, Verified 07/27/24 12:28)
Unknown,contraindicated with kidney disease
hay fever Allergy (Unknown, Uncoded 07/27/24 12:28)
-
Vital Signs and Labs
-
Vital Signs and Labs:
Vital Signs
Temp Pulse Resp BP Pulse Ox
36.2 C 61 16 141/75 94
07/28/24 07:00 07/28/24 07:00 07/28/24 07:00 07/28/24 07:00 07/28/24 07:00
Lab Results
07/28/24 08:05
07/28/24 08:05
PT 13.8 Sec (11.4-14.6) 07/27/24 14:10
INR 1.07 07/27/24 14:10
Sodium 142 mmol/L (135-145) 07/28/24 08:05
Potassium 4.4 mmol/L (3.5-5.1) 07/28/24 08:05
BUN 18 mg/dl (9-20) 07/28/24 08:05
Glucose 99 mg/dl (70-99) 07/28/24 08:05
Calcium 9.6 mg/dl (8.4-10.2) 07/28/24 08:05
LDL Cholesterol, Calc 63 mg/dl 07/28/24 08:05
Medications
-
Medications:
Generic Name Dose Route Start Last Admin
Trade Name Freq PRN Reason Stop Dose Admin
Acetaminophen 650 mg 07/27/24 19:39
Acetaminophen 650 Mg Rectal Suppository RECTAL 08/24/24 19:38
Q4HPRN PRN
SWIFT, mild pain, or temp >100.4F
Acetaminophen 650 mg 07/27/24 19:39
Acetaminophen 325 Mg Tablet PO 08/24/24 19:38
Q4HPRN PRN
SWIFT, mild pain, or temp >100.4F
Aspirin 81 mg 07/28/24 08:00 07/28/24 08:53
Aspirin 81 Mg Chewable Tablet PO 08/25/24 07:59 81 mg
DAILY PAUL Administration
Atorvastatin Calcium 40 mg 07/28/24 08:00 07/28/24 08:53
Atorvastatin (Lipitor) 40 Mg Tablet PO 08/25/24 07:59 40 mg
DAILY PAUL Administration
Finasteride 5 mg 07/28/24 08:00 07/28/24 08:53
Finasteride 5 Mg Tablet PO 08/25/24 07:59 5 mg
DAILY PAUL Administration
Hydralazine HCl 5 mg 07/27/24 19:39
Hydralazine 20 Mg/Ml Vial IV 08/24/24 19:38
Q4HPRN PRN
if > SBP 185, > DBP 110
Lactase 1 capsule 07/27/24 19:39
Lactase Enzyme Capsule PO 08/24/24 19:38
DAILYPRN PRN
lactose intolerance
Levetiracetam 500 mg 07/28/24 20:00
Levetiracetam Solution (500 Mg/5 Ml) Cup PO 08/25/24 19:59
BID PAUL
Sodium Chloride 0 flush 07/27/24 20:00
Sodium Chloride 0.9% (Flush) Syringe IV 08/24/24 19:59
PER PROTOCOL PAUL
Tamsulosin HCl 0.4 mg 07/27/24 19:39 07/27/24 20:43
Tamsulosin 0.4 Mg Capsule PO 08/24/24 19:38 0.4 mg
QPM PAUL Administration
Home Medications
-
Home Medications
amlodipine 5 mg tablet 5 mg PO BID Blood Pressure 03/05/24
carvedilol 12.5 mg tablet 12.5 mg PO BID Blood Pressure 03/05/24
cholecalciferol (vitamin D3) 25 mcg (1,000 unit) tablet 25 mcg PO DAILY Supplement 03/05/24
fexofenadine 60 mg tablet 60 mg PO DAILYPRN PRN allergies 03/05/24
finasteride 5 mg tablet 5 mg PO DAILY Urinary Issue 03/05/24
lactase 3,000 unit tablet (Lactaid) 3,000 unit PO DAILYPRN PRN lactose intolerance 03/05/24
tamsulosin 0.4 mg capsule 0.4 mg PO QPM Urinary Issue 03/05/24
vit C 250 mg-vit E 90 mg-zinc 40 mg-copper 1 [id number] capsule (PreserVision AREDS-2) 1 cap PO BID Supplement 03/05/24
acetaminophen 500 mg tablet (Tylenol Extra Strength) 500 mg PO Q6HPRN PRN mild pain 07/27/24
aspirin 325 mg tablet 325 mg PO NOON Pain 07/27/24
atorvastatin 10 mg tablet 10 mg PO NOON High Cholesterol 07/27/24
tetrahydrozoline 0.05 % eye drops (Visine) 1 drp BOTH EYES Q6HPRN PRN dry eyes 07/27/24
[2024-07-28] MEDS: KEPPRA 1000 MG IV (12:49)
--- NOTE | 2024-07-28 13:25 | W.PN.HOSP.TC ---
Today's Communication/Plan
-
mri brain
tele
keppra
permissive hypertension
Assessment / Plan
Assessment / Plan
Physical Exam
General: Well Developed, Well Nourished and No Apparent Distress
HEENT: NormoCephalic, Moist mucous membranes and Atraumatic
Respiratory: Clear
Cardiac: S1/S2 and Regular Rhythm; No Murmur or Rub
GI: Soft, Non Tender, Non Distended and Normal Bowel Sounds; No Organomegaly
Rectal: Deferred by Provider
Musculoskeletal: No Clubbing, No Cyanosis and No Edema
Skin: No Rash
Neuro: Nonfocal/grossly intact
#TIA
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
-Spontaneous resolution of transient acute abnormal acute gait dysfunction , right-sided facial droop and mild slurred speech.
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
-Currently on daily baby ASA
- NEG HCT
-MRI brain w/wo nupur
-ASA 81mg
-Statin
-Tele
-Start Keppra 1 g IV load followed by 500 mg twice daily.
-Routine EEG(can be done as OP)
-OP Neurology follow up with Winifred Cuadra MD in 1-2 weeks
-permissive hypertension for today
#Leukocytosis
� Most likely reactive
� Monitor record, white count,
� Improving
#Benign HTN - suboptimal control
- Hold Amlodipine and Carvedilol
- allow permissive SBP 185, DBP 110 for IV Hydralazine
HX Transurethral ablation of prostate on 03/27/19 for BPH
- await Rx reconciliation
DVT Px: HSQ
Code: Full
Anticipated Discharge: Within 24 hours
Subjective/Interval History
-
Date of Service: July 28, 2024
no acute events
Objective Data
-
Labs:
Laboratory Results
07/28/24
08:05
WBC 9.3
Hgb 14.7
Hct 43.9
Plt Count 231
Sodium 142
Potassium 4.4
Chloride 104
Carbon Dioxide 25
BUN 18
Creatinine 1.2
Glucose 99
Calcium 9.6
Vital Signs:
Vital Signs
Temp Pulse Resp BP Pulse Ox
97.7 F 59 18 168/76 94
07/28/24 11:00 07/28/24 11:00 07/28/24 11:00 07/28/24 11:00 07/28/24 11:00
Review of Systems
-
History Source: Patient
All other systems: Not reviewed unless documented
Data Reviewed
-
CT Scan: Image personally visualized and interpreted and Report Reviewed by me
Labs: Labs Reviewed by me
--- NOTE | 2024-07-28 14:02 | PTOTSP ---
SPEECH THERAPY SWALLOW EVALUATION:
Patient exhibits grossly functional oropharyngeal swallow at this time. No history of oropharyngeal dysphagia noted. History of esophageal dysphagia, which patient follows GI for and reports is well-controlled at this time. Patient remains at risk
for aspiration given possible acute CVA and risk for post-prandial aspiration given history of esophageal dysphagia. Recommend continue Regular texture solids, thin liquids. Medications whole with liquid as best tolerated. General aspiration and
Reflux precautions. Patient appears at baseline level of swallow function, and skilled ST services for swallow therapy are not indicated at this time.
Patient exhibited no overt speech/language/cognitive communication impairments noted during informal assessment. ST to monitor for MRI results; Will complete full speech/language/cognitive communication evaluation pending MRI results.
RECOMMEND:
1) Regular texture diet, thin liquids
2) Medications whole with liquid as best tolerated
3) General Aspiration and Reflux precautions
4) No skilled ST swallow services are indicated at this time; ST to monitor MRI results and complete full speech/language/cognitive communication evaluation pending results/diagnosis
--- NOTE | 2024-07-28 15:08 | PTCARENOTE ---
PT went to MRI, completed. Prior to MRI pt started with Keppra loading dose. PT admitted to walking and being wobbly. PT placed on immediate high fall risk, yellow band placed and pt contractted to walking with staff only .
[2024-07-28] MEDS: FLOMAX 0.4 MG PO (16:52)
[2024-07-28] MEDS: HEPARIN 5000 UNITS SC (16:52)
[2024-07-28] MEDS: KEPPRA 500 MG PO (20:44)
[2024-07-29] MEDS: HEPARIN SC (01:17)
[2024-07-29 03:34] VITALS: BP 138/64
[2024-07-29 04:32] LABS: Hematocrit 37.6 % (39.0-52.0); Hemoglobin 13.1 g/dL (13.0-18.0); Mean Corp Hgb Conc. 34.8 g/dL (33.0-37.0); Mean Corpuscular Hgb 32.9 pg (27.0-31.0); Mean Corpuscular Volume 94.5 fL (80.0-94.0); Mean Platelet Volume 10.6 fL (7.4-10.4); Platelet Count 207 10^3/uL (130-400); Red Blood Cell Count 3.98 10^6/uL (4.70-6.10); Red Cell Dist. Width 13.1 % (11.5-14.5); White Blood Cell Count 10.1 10^3/uL (4.8-10.8)
[2024-07-29 04:54] LABS: Blood Urea Nitrogen 20 mg/dl (9-20); Calcium 9.1 mg/dl (8.4-10.2); Carbon Dioxide 26 mmol/L (22-30); Chloride 104 mmol/L (98-107); Estimated Creatinine Clearance 51 ml/min; Glucose 97 mg/dl (70-99); Potassium 3.8 mmol/L (3.5-5.1); Sodium 142 mmol/L (135-145); eGFR 51.13
[2024-07-29 07:00] VITALS: BP 145/69
[2024-07-29] MEDS: LIPITOR 40 MG PO (09:25)
[2024-07-29] MEDS: LOW STRENGTH ASPIRIN 81 MG PO (09:25)
[2024-07-29] MEDS: KEPPRA 500 MG PO (09:25)
[2024-07-29] MEDS: HEPARIN 5000 UNITS SC (09:26)
[2024-07-29] MEDS: PROSCAR 5 MG PO (09:27)
[2024-07-29 11:00] VITALS: BP 154/67
--- NOTE | 2024-07-29 11:20 | CM ---
Met with patient admitted from home. Lives with SO in 2 level condo with one step to enter, He does not use any devices for ADLS or ambulation.
PCP Dr Viviane Powell
[facility] [address] [facility] [place]
PLan home no needs.
--- NOTE | 2024-07-29 12:54 | W.PN.HOSP.TC ---
Addendum entered and electronically signed by Todd Trammell MD 07/29/24 16:56:
[id number]
Original Note:
Today's Communication/Plan
-
bmp f/u outpatient
asa, statin
Keppra 500 mg twice daily.
Routine EEG(can be done as OP)
OP Neurology follow up with Winifred Cuadra MD in 1-2 weeks
F/u PCP within 1 week
Assessment / Plan
Assessment / Plan
Physical Exam
General: Well Developed, Well Nourished and No Apparent Distress
HEENT: NormoCephalic, Moist mucous membranes and Atraumatic
Respiratory: Clear
Cardiac: S1/S2 and Regular Rhythm; No Murmur or Rub
GI: Soft, Non Tender, Non Distended and Normal Bowel Sounds; No Organomegaly
Rectal: Deferred by Provider
Musculoskeletal: No Clubbing, No Cyanosis and No Edema
Skin: No Rash
Neuro: Nonfocal/grossly intact
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
-Spontaneous resolution of transient acute abnormal acute gait dysfunction , right-sided facial droop and mild slurred speech.
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
-Currently on daily baby ASA
- NEG HCT
-MRI brain w/wo nupur negative for acute pathology - folund to hav chronic infarcts
-ASA 81mg
-Statin
-Tele
-Start Keppra 1 g IV load followed by 500 mg twice daily.
-Routine EEG(can be done as OP)
-OP Neurology follow up with Winifred Cuadra MD in 1-2 weeks
#Leukocytosis
� Most likely reactive
� Monitor record, white count,
� Improving
#Benign HTN -
- Amlodipine and Carvedilol
HX Transurethral ablation of prostate on 03/27/19 for BPH
- await Rx reconciliation
DVT Px: HSQ
Code: Full
More than 30 minutes spent in discharge including
Final examination of the patient
Summarizing hospital stay
Instructions for continuing care to all relevant caregivers
Preparation of discharge records, prescriptions, and referral forms
Total time spent (35 in minutes):
Anticipated Discharge: Today
Subjective/Interval History
-
Date of Service: July 29, 2024
patient may have felt similar episode last night but quickly subsided
Objective Data
-
Labs:
Laboratory Results
07/29/24
04:13
WBC 10.1
Hgb 13.1
Hct 37.6 L
Plt Count 207
Sodium 142
Potassium 3.8
Chloride 104
Carbon Dioxide 26
BUN 20
Creatinine 1.4 H
Glucose 97
Calcium 9.1
Vital Signs:
Vital Signs
Temp Pulse Resp BP Pulse Ox
98 F 56 16 154/67 96
07/29/24 07:00 07/29/24 11:00 07/29/24 11:00 07/29/24 11:00 07/29/24 11:00
I&O
07/28/24 07/29/24 07/30/24
06:59 06:59 06:59
Intake Total 720 / 720
Balance 720 / 720
Review of Systems
-
History Source: Patient
All other systems: Not reviewed unless documented
Data Reviewed
-
CT Scan: Image personally visualized and interpreted and Report Reviewed by me
MRI: Image personally visualized and interpreted
Labs: Labs Reviewed by me
--- NOTE | 2024-07-29 12:58 | W.DS.TRANS ---
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
-
Discharge Instructions:
Discharge Diagnosis/Procedures Probable focal epilepsy
Diet Low Cholesterol,Low Fat
Activity As tolerated
Blood Work bmp in 3-5 days with pcp
Others Tests EEG outpatient
Instructions:
Stand-Alone Forms:
Changes to Home Medications: Yes
Discharge Medications:
DC Medications w/original date entered in [facility]
amlodipine 5 mg tablet 5 mg PO BID Blood Pressure 03/05/24
carvedilol 12.5 mg tablet 12.5 mg PO BID Blood Pressure 03/05/24
cholecalciferol (vitamin D3) 25 mcg (1,000 unit) tablet 25 mcg PO DAILY Supplement 03/05/24
fexofenadine 60 mg tablet 60 mg PO DAILYPRN PRN allergies 03/05/24
finasteride 5 mg tablet 5 mg PO DAILY Urinary Issue 03/05/24
lactase 3,000 unit tablet (Lactaid) 3,000 unit PO DAILYPRN PRN lactose intolerance 03/05/24
tamsulosin 0.4 mg capsule 0.4 mg PO QPM Urinary Issue 03/05/24
vit C 250 mg-vit E 90 mg-zinc 40 mg-copper 1 rf-degehx-nvyllc capsule (PreserVision AREDS-2) 1 cap PO BID Supplement 03/05/24
acetaminophen 500 mg tablet (Tylenol Extra Strength) 500 mg PO Q6HPRN PRN mild pain 07/27/24
tetrahydrozoline 0.05 % eye drops (Visine) 1 drp BOTH EYES Q6HPRN PRN dry eyes 07/27/24
aspirin 81 mg chewable tablet 81 mg PO DAILY 30 days #30 tabs 07/29/24
atorvastatin 40 mg tablet 40 mg PO DAILY #30 tabs 07/29/24
levetiracetam 500 mg tablet (Keppra) 500 mg PO Q12H 30 days #60 tabs 07/29/24
Home Medication Changes
aspirin 81 mg chewable tablet 81 mg PO DAILY 30 days #30 tabs 07/29/24
atorvastatin 40 mg tablet 40 mg PO DAILY #30 tabs 07/29/24
levetiracetam 500 mg tablet (Keppra) 500 mg PO Q12H 30 days #60 tabs 07/29/24
Pending Results: No
[2024-07-29] MEDS: LR 1000 IV (13:10)
--- NOTE | 2024-07-29 13:30 | PTCARENOTE ---
MD made aware of creatinine. IV LR bolus ordered and infusing.
== END 2024-07-29 15:12 | disposition home or self-care (01) ==
LOC: 3 WEST ACU 15:33
PROVIDERS: Emergency Medicine; ADMITTING PHYSICIAN Internal Medicine; ATTENDING PHYSICIAN Internal Medicine; CONSULT PHYSICIAN Psychiatry & Neurology Neurology; EMERGENCY PHYSICIAN Emergency Medicine; FAMILY PHYSICIAN Family Medicine
DX: R56.9 Unspecified convulsions (principal); R47.81 Slurred speech; R29.810 Facial weakness; I10 Essential (primary) hypertension; E78.00 Pure hypercholesterolemia, unspecified; G31.9 Degenerative disease of nervous system, unspecified; D72.829 Elevated white blood cell count, unspecified; R00.1 Bradycardia, unspecified; R26.9 Unspecified abnormalities of gait and mobility; D32.0 Benign neoplasm of cerebral meninges; N40.1 Benign prostatic hyperplasia with lower urinary tract symptoms; Z87.442 Personal history of urinary calculi; Z87.891 Personal history of nicotine dependence; Z83.3 Family history of diabetes mellitus; Z82.49 Family history of ischemic heart disease and other diseases of the circulatory system; Z88.8 Allergy status to other drugs, medicaments and biological substances; Z91.018 Allergy to other foods; Z86.73 Personal history of transient ischemic attack (TIA), and cerebral infarction without residual deficits; Z79.82 Long term (current) use of aspirin; Z90.79 Acquired absence of other genital organ(s)
CPT/HCPCS: 70450; 70553; 80048; 80053; 80061; 83036; 84484; 85025; 85027; 85610; 92610; 93005; 97161; 97165; 99285; A9575; G0378

== ENCOUNTER → 2024-10-01 10:53 | Outpatient (REF) | payer OTHER, SELFPAY ==
--- NOTE | 2024-10-02 15:11 | EEGC.RPT ---
Continuous EEG Report
Recording
End Date of Data Reviewed: 10/02/24
Done with Video Recording: Yes
Electrocardiogram: Unremarkable
Report
TECHNICAL REMARKS: This is a technically satisfactory eighteen channel record employing 21 disc electrodes applied according to a measured international 10-20 electrode placement system. There were no significant technical difficulties. The study
was done on a [employer] System.
MEDICATIONS: Keppra.
STUDY DURATION: 30 min, 33 sec
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 This study was requested to look for epileptiform abnormalities.
REPORT: At the onset of the EEG, the patient is awake. The background activity on the consists of 10-11 Hz, persistent, posteriorly dominant, moderate in amplitude, symmetric, and rhythmic activity. Continuous left frontal delta�theta moderate
amplitude slowing during wakefulness is present. Slowing 5-6 slowing is present. Stepwise intermittent photic stimulation (1-31 Hz) and hyperventilation (remitted, good effort) did not induce any additional abnormalities. Drowsiness is
characterized by low amplitude mixed frequency activity, decreased eye blinking, and muscle artifact. No epileptiform abnormalities were seen.
IMPRESSION: This is an abnormal awake and drowsy EEG due to continuos bifrontal slowing indicative of cerebral dysfunction in the eyebrow region. No epileptiform activities were seen.
== END ==
LOC: EEG 10:53
PROVIDERS: ATTENDING PHYSICIAN Psychiatry & Neurology Neurology; FAMILY PHYSICIAN Family Medicine
DX: G40.89 Other seizures (principal)
CPT/HCPCS: 95816